=== PATIENT | female | born 1960 | race Caucasian/White ===

== ENCOUNTER 2018-01-02 03:46 | Emergency (ER) | payer SELFPAY ==
[~2018-01-02] VITALS: Ht 154.9 cm; Wt 82.6 kg
[2018-01-02] MEDS ORDERED: ONDANSETRON 4 MG TAB.RAPDIS ONE (03:54)
[2018-01-02] MEDS ORDERED: MAG HYDROX/AL HYDROX/SIMETH 30 ML UDC ONE (04:17)
[2018-01-02] MEDS ORDERED: ALPRAZOLAM 0.5 MG TABLET ONE (04:18)
[2018-01-02] MEDS ORDERED: NITROGLYCERIN PACKET 1 GM PACKET ONE (04:19)
[2018-01-02] MEDS ORDERED: ASPIRIN 81 MG TAB.CHEW ONE (04:19)
[2018-01-02] MEDS ORDERED: PANTOPRAZOLE 40 MG TABLET.DR PO ONE ×2 (04:19→04:30)
--- NOTE | 2018-01-02 04:20 | NUR ---
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 Pt IS A/OX3, VERBAL, ABLE TO MAKE NEEDS KNOWN. Pt IS GOWNED AND COMFORTABLY SITTING UP IN BED. NO S/S OF ACUTE DISTRESS OR SOB NOTED. Pt SEEN BY . WILL CONTINUE TO MONITOR Pt.
--- NOTE | 2018-01-02 04:23 | NUR ---
CXR BEING DONE AT BEDSIDE
[2018-01-02] MEDS ORDERED: ONDANSETRON 4 MG TAB.RAPDIS SL ONE (04:30)
[2018-01-02] MEDS ORDERED: ALPRAZOLAM 0.5 MG TABLET PO ONE (04:30)
[2018-01-02] MEDS ORDERED: NITROGLYCERIN PACKET 1 GM PACKET TD ONE (04:30)
[2018-01-02] MEDS ORDERED: MAG HYDROX/AL HYDROX/SIMETH 30 ML UDC PO ONE (04:30)
[2018-01-02] MEDS ORDERED: ASPIRIN 81 MG TAB.CHEW PO ONE (04:30)
--- NOTE | 2018-01-02 04:53 | NUR ---
Pt REFUSED ASPIRIN ORDER. INFORMED MD AND DISCONTINUED MED. HAD TO WASTE ONE TAB 81MG, PACKET WAS OPENED PRIOR TO Pt REFUSING MED. WAS ABLE TO RETURN ONE TAB 81MG.
--- NOTE | 2018-01-02 04:55 | NUR ---
ORDERED MEDS GIVEN
[2018-01-02 05:07] LABS: BASOPHILS # (AUTO) 0.1 /CMM (0.0-0.2); BASOPHILS % (AUTO) 1.4 % (0.0-2.0); EOSINOPHILS % (AUTO) 2.6 % (0.0-6.0); HEMATOCRIT 44 % (33-45); HEMOGLOBIN 14.5 g/dL (11.5-14.8); LYMPHOCYTES # (AUTO) 2.7 /CMM (0.8-4.8); LYMPHOCYTES % (AUTO) 33.5 % (20.0-44.0); MEAN CORPUSCULAR HEMOGLOBIN 28 PG (26.0-33.0); MEAN CORPUSCULAR HGB CONC 33 g/dl (31.0-36.0); MEAN CORPUSCULAR VOLUME 85 fL (82-100); MONOCYTES # (AUTO) 0.5 /CMM (0.1-1.30); MONOCYTES % (AUTO) 6.4 % (2.0-12.0); NEUTROPHILS # (AUTO) 4.7 /CMM (1.8-8.9); NEUTROPHILS % (AUTO) 56.1 % (43.0-81.0); PLATELET COUNT (AUTO) 254 /CMM (150-450); RDW COEFFICIENT OF VARIATION 12.7 (11.5-15.0); RED BLOOD CELL COUNT(AUTO) 5.14 MIL/uL (4.0-5.2); WHITE BLOOD COUNT (AUTO) 8.2 K/uL (4.3-11.0)
[2018-01-02 05:11] LABS: CALCIUM, SERUM 8.9 mg/dL (8.5-10.1); CARBON DIOXIDE 28 mmol/L (21-32); CHLORIDE 106 mmol/L (98-107); GLUCOSE 110 mg/dL (74-106); POTASSIUM 3.5 mmol/L (3.5-5.1); SODIUM SERUM 142 mmol/L (136-145); UREA NITROGEN, BLOOD 18 mg/dL (7-18)
[2018-01-02 05:19] LABS: TROPONIN I < 0.017 ng/mL (0.00-0.056)
[2018-01-02 05:24] LABS: ALANINE AMINOTRANSFERASE 60 U/L (12-78); ALBUMIN 3.5 g/dL (3.4-5.0); ALKALINE PHOSPHATASE 79 U/L (46-116); ASPARTATE AMINOTRANSFERASE 27 U/L (15-37); B-TYPE NATRIURETIC PEPTIDE 46 PG/ML (0-125); BILIRUBIN,DIRECT 0.1 mg/dL (0.0-0.2); BILIRUBIN,TOTAL 0.3 mg/dL (0.2-1.0); TOTAL PROTEIN, SERUM 7.5 g/dL (6.4-8.2)
--- NOTE | 2018-01-02 07:26 | NUR ---
endorsed to tony KRUGER for pt's RADHA
--- NOTE | 2018-01-02 07:27 | NUR ---
PT ON BED, AWAKE.
[2018-01-02 09:25] VITALS: BP 136/78
--- NOTE | 2018-01-02 09:26 | NUR ---
Patient discharged to home in stable condition. Written and verbal after care instructions given. Patient verbalizes understanding of instruction.IV removed. Catheter intact and site benign. Pressure and 4x4 applied to site. No bleeding noted.
== END 2018-01-02 09:26 | disposition home or self-care (01) ==
LOC: ER 03:47
DX: R07.89 Other chest pain (principal); F41.9 Anxiety disorder, unspecified; R11.0 Nausea; Z88.2 Allergy status to sulfonamides
CPT/HCPCS: 36415; 71045; 80048; 80076; 83880; 84484 ×2; 85025; 85378; 93005; 93971; 99285; A4606; Q0162; Z7610

== ENCOUNTER 2018-03-28 04:51 | Emergency (ER) | payer SELFPAY ==
[~2018-03-28] VITALS: Ht 154.9 cm; Wt 84.8 kg
--- NOTE | 2018-03-28 05:23 | NUR ---
PT C/O LEFT ARM PAIN X1 DAY. DENIES TRAUMA, SOB, CHEST PAIN, N/V/D. PT HAS BEEN UNDER A LOT OF STRESS LATELY AND IS FEELING ANXIOUS. PT IS AOX4, VSS, RESPIRATIONS EVEN AND UNLABORED. SKIN WARM TO TOUCH, DRY, INTACT. SEEN BY DR DEY. AWAITING ORDERS
--- NOTE | 2018-03-28 05:42 | NUR ---
Patient discharged to home in stable condition. Written and verbal after care instructions given. Patient verbalizes understanding of instruction.
[2018-03-28 05:43] VITALS: BP 145/70
== END 2018-03-28 05:44 | disposition home or self-care (01) ==
LOC: ER 04:57
DX: M79.602 Pain in left arm (principal); F41.9 Anxiety disorder, unspecified; Z88.2 Allergy status to sulfonamides
CPT/HCPCS: 93005; 99283; A4606; Z7610

== ENCOUNTER 2018-11-09 20:50 | Emergency (ER) | payer SELFPAY ==
[~2018-11-09] VITALS: Ht 154.9 cm; Wt 72.6 kg
--- NOTE | 2018-11-09 21:05 | NUR ---
PT BIBSELF C/O L CHEST PAIN X 1 DAY W/ HIGH BLOOD PRESSURE. PT AXO4. RESPIRATIONS EVEN AND UNLABORED. PT PUT ON THE CARDAIC MONITOR AND PULSE OX. PENDING EVAL FROM ER MD. PT STATE SHE HAS RLQ PAIN X 1 YEAR. PT HAS HX OF DIVERTICULOSIS.
--- NOTE | 2018-11-09 21:30 | NUR ---
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 LABS DRAWN FROM 20G LAC. SENT TO LAB.
[2018-11-09 21:40] LABS: BASOPHILS % (AUTO) 0.6 % (0.0-2.0); EOSINOPHILS % (AUTO) 0.9 % (0.0-6.0); HEMATOCRIT 45 % (33-45); HEMOGLOBIN 15.2 g/dL (11.5-14.8); LYMPHOCYTES # (AUTO) 2.2 /CMM (0.8-4.8); LYMPHOCYTES % (AUTO) 25.9 % (20.0-44.0); MEAN CORPUSCULAR HGB CONC 34 g/dl (31.0-36.0); MEAN CORPUSCULAR VOLUME 87 fL (82-100); MONOCYTES # (AUTO) 0.6 /CMM (0.1-1.30); MONOCYTES % (AUTO) 7.8 % (2.0-12.0); NEUTROPHILS # (AUTO) 5.4 /CMM (1.8-8.9); NEUTROPHILS % (AUTO) 64.8 % (43.0-81.0); PLATELET COUNT (AUTO) 267 /CMM (150-450); RED BLOOD CELL COUNT(AUTO) 5.17 MIL/uL (4.0-5.2); WHITE BLOOD COUNT (AUTO) 8.3 K/uL (4.3-11.0)
--- NOTE | 2018-11-09 21:40 | NUR ---
EKG AT BEDSIDE.
[2018-11-09 21:51] LABS: CALCIUM, SERUM 9.4 mg/dL (8.5-10.1); CARBON DIOXIDE 32 mmol/L (21-32); CHLORIDE 106 mmol/L (98-107); GLUCOSE 110 mg/dL (74-106); POTASSIUM 3.5 mmol/L (3.5-5.1); SODIUM SERUM 145 mmol/L (136-145); UREA NITROGEN, BLOOD 11 mg/dL (7-18)
--- NOTE | 2018-11-09 21:53 | NUR ---
XRAY AT BEDSIDE.
--- NOTE | 2018-11-10 00:41 | NUR ---
Repeat EKG at bedside.
[2018-11-10] MEDS ORDERED: IOHEXOL-350 100 ML VIAL IV ONE (01:23)
[2018-11-10] MEDS ORDERED: CT SWABBABLE VALVE TRANS SET 1 EA INFUS.SET MC ONE ×2 (01:23→01:24)
[2018-11-10] MEDS ORDERED: IV NS 0.9% 250 ML IV ONE (01:24)
--- NOTE | 2018-11-10 01:33 | NUR ---
Pt taken to CT via rgianni.
--- NOTE | 2018-11-10 03:54 | NUR ---
Patient discharged to home in stable condition. Written and verbal after care instructions given. Patient verbalizes understanding of instruction. IV removed. Catheter intact and site benign. Pressure and 4x4 applied to site. No bleeding noted.
[2018-11-10 03:56] VITALS: BP 141/77
== END 2018-11-10 03:56 | disposition home or self-care (01) ==
LOC: ER 20:55
DX: I10 Essential (primary) hypertension (principal); F41.9 Anxiety disorder, unspecified; M54.2 Cervicalgia; R51 Headache; K21.9 Gastro-esophageal reflux disease without esophagitis; Z88.2 Allergy status to sulfonamides; Z60.2 Problems related to living alone
CPT/HCPCS: 36415 ×2; 70496; 70498; 71045; 80048; 84484 ×2; 85025; 93005 ×3; 99284; J7050; Q9967